=== PATIENT | female | born 1990 | race Caucasian/White ===

== ENCOUNTER 2021-04-12 18:02 | Emergency (ER) | payer OTHER ==
[~2021-04-12] VITALS: Ht 157.5 cm; Wt 81.7 kg
--- NOTE | ~2021-04-12 | EMS ---
[facility] [address] [place] [address] EMS Patient Care Report Name: DEX NGUYEN Room #: PRE ER M.R.#: [id number] Admission: Attend Phys: Discharge: Date of : 88 Report #: [id number] THIS REPORT FOR: //name// Report Transmitted: 04/12/2021 18:27 EMS Care Summary [place], [place]/[facility] Incident [id number] @ 04/12/2021 17:30 Incident Location [address] [place] [address] Patient DEX NGUYEN Female, 38 Years 1982-08-19 Patient Address [address] [place] [address] Patient History Novel Coronavirus (COVID-19), Chief Complaint covid Disposition Transported No Lights/[place] Dis[place] Reason Breathing Problem Transported To [facility] Narrative pt found walking outside with her partner. pts kids were on scene and stated pt speaks no albanian and is sri lankan speaking only. pt appeared a&ox4 gcs 15 and did not present in apparent distress. pts kids stated everyone in the house currently has covid and pt is not vaccinated and has been coughing and had a fever x1 week. pts kids were unable to provide ems with detailed hx. ems advised kids pt will be transported to [facility]. pt walked into ambulance. ems speaks very little sri lankan. ems was only able to obtain pts birthday. pt was transferred onto ems cot and was secured in a semi fowlers position without [facility] [address] [place] [address] EMS Patient Care Report Name: DEX NGUYEN Room #: PRE M.R.#: [id number] Admission: Attend Phys: Discharge: Date of : 88 Report #: [id number] incident. pt was administered 2lpm o2 via nc. pt had a persistent cough. pt was transported non emergent. transport was uneventful and pt rested on ems cot. pt care was transferred to appropriate staff and ems goes back in service. Initial Vitals @17:42P: 122,R: 20,BP: 110/70,Pain: 0/10,GCS: 15,SpO2: 88,Revised Trauma: 12, @17:52P: 120,R: 20,BP: 114/70,GCS: 15,SpO2: 92,Revised Trauma: 12, Assessments @17:37MENTAL:Place Oriented,Event Oriented,Time Oriented,Person Oriented,SKIN:No Abnormalities,HEENT:Head/Face: No Abnormalities,Eyes: No Abnormalities,Neck/Airway: No Abnormalities,LUNG SOUNDS:General: No Abnormalities,Left Upper: No Abnormalities,Right Upper: No Abnormalities,Left Lower: No Abnormalities,Right Lower: No Abnormalities,ABDOMEN:General: No Abnormalities,Left Upper: No Abnormalities,Right Upper: No Abnormalities,Left Lower: No Abnormalities,Right Lower: No Abnormalities,PELVIS//GI:No Abnormalities,EXTREMITIES:Left Arm: No Abnormalities,Right Arm: No Abnormalities,Left Leg: No Abnormalities,Right Leg: No Abnormalities,PULSE:NEURO:No Abnormalities,@17:51MENTAL:No Abnormalities,SKIN:No Abnormalities,HEENT:Head/Face: No Abnormalities,Eyes: No Abnormalities,Neck/Airway: No Abnormalities,LUNG SOUNDS:General: No Abnormalities,Left Upper: No Abnormalities,Right Upper: No Abnormalities,Left Lower: No Abnormalities,Right Lower: No Abnormalities,ABDOMEN:General: No Abnormalities,Left Upper: No Abnormalities,Right Upper: No Abnormalities,Left Lower: No Abnormalities,Right Lower: No Abnormalities,PELVIS//GI:No Abnormalities,EXTREMITIES:Left Arm: No Abnormalities,Right Arm: No Abnormalities,Left Leg: No Abnormalities,Right Leg: No Abnormalities,PULSE:NEURO:No Abnormalities, Impression Acute Respiratory Distress (Dyspnea) Procedures @17:37ALS AssessmentResponse: UnchangedSucceeded@17:42Oxygen FlowRate: 2 Device: Nasal Cannula (NC) Response: ImprovedSucceeded Timeline 17:27,Call Received 17:27,Dispatch Notified 17:30,Dispatched 17:32,En Route 17:36,On Scene 17:37,At Patient 17:37,ALS Assessment,Response: UnchangedSucceeded, 17:40,Depart Scene 17:42,Oxygen FlowRate: 2 Device: Nasal Cannula (NC) Response: Juani, [facility] [address] [place] [address] EMS Patient Care Report Name: DEX NGUYEN Room #: [facility] M.R.#: [id number] Admission: Attend Phys: Discharge: Date of : 88 Report #: [id number] 17:42,BP: 110/70 M,PULSE: 122,RR: 20 R,SPO2: 88 Ox,ETCO2: ,BG: ,PAIN: 0,GCS: 15, 17:52,BP: 114/70 M,PULSE: 120,RR: 20 R,SPO2: 92 Ox,ETCO2: ,BG: ,PAIN: ,GCS: 15, 17:56,At Destination 18:24,Call Closed Disclaimer v1.1 Copyright 2020 [employer] This EMS Care Summary contains data elements from the applicable legal record (which may be displayed differently). It is designed to provide pertinent information for the following purposes: continuity of care, clinical quality, and state data reporting. The complete legal record is available to ED staff and administrators of the receiving hospital in [facility] Patient Tracker. All data is provided "as is."
[2021-04-12 19:02] LABS: ABSOLUTE NEUTROPHILS 3.2 thou/uL (1.4-8.2); BASOPHILS 0.4 % (0.0-2.0); EOSINOPHILS 0.1 % (0.0-3.0); HEMOGLOBIN 14.2 gm/dL (12.0-15.0); LYMPHOCYTES 18.9 % (24.0-44.0); MCH 30.7 pg (26.0-34.0); MCHC 34.7 g/dL (28.0-37.0); MCV 88.5 fL (80.0-100.0); MONOCYTES 7.1 % (1.0-8.0); PLATELET COUNT 162 thou/uL (150-400); POLYS 73.5 % (36.0-66.0); RBC 4.63 mil/uL (4.20-5.00); RDW 12.8 % (10.5-14.5); WBC 4.3 thou/uL (4.0-11.0)
[2021-04-12] MEDS ORDERED: TESSALON PERLE100 M1 PO (19:03)
[2021-04-12 19:12] LABS: ANION GAP 7 mmol/L (7-16); BUN 9 mg/dL (7-18); CALCIUM 8.2 mg/dL (8.5-10.1); CHLORIDE 96 mmol/L (98-107); CO2 29 mmol/L (21-32); CREATININE 0.8 mg/dL (0.6-1.0); GLUCOSE 102 mg/dL (74-106); POTASSIUM 3.6 mmol/L (3.5-5.1); SODIUM 132 mmol/L (136-145)
[2021-04-12 19:22] LABS: ALBUMIN 3.5 g/dL (3.4-5.0); SGOT 88 U/L (15-37); SGPT 113 U/L (30-65); TOTAL BILIRUBIN 0.4 mg/dL (0.2-1.0); TOTAL PROTEIN 7.8 g/dL (6.4-8.2); TROPONIN-I <0.06 ng/mL (<0.06)
[2021-04-12 21:55] VITALS: BP 112/70
== END 2021-04-12 23:29 | disposition home or self-care (01) ==
LOC: ER 18:02
PROVIDERS: Physician Assistant
DX: U07.1 COVID-19 (principal); Z79.899 Other long term (current) drug therapy

== ENCOUNTER 2021-04-14 16:46 | Inpatient (IN) | payer OTHER ==
[~2021-04-14] VITALS: Ht 152.4 cm; Wt 91.6 kg
[~2021-04-14 16:46] MED LIST: TESSALON PERLE100 M1 PO
[2021-04-14 16:56] VITALS: BP 116/68
[2021-04-14 17:19] LABS: ABSOLUTE NEUTROPHILS 4.1 thou/uL (1.4-8.2); BASOPHILS 0.4 % (0.0-2.0); EOSINOPHILS 0.1 % (0.0-3.0); HEMOGLOBIN 12.8 gm/dL (12.0-15.0); LYMPHOCYTES 17.5 % (24.0-44.0); MCH 30.5 pg (26.0-34.0); MCHC 34.6 g/dL (28.0-37.0); MCV 88.1 fL (80.0-100.0); MONOCYTES 5.1 % (1.0-8.0); PLATELET COUNT 202 thou/uL (150-400); POLYS 76.9 % (36.0-66.0); RDW 12.4 % (10.5-14.5); WBC 5.3 thou/uL (4.0-11.0)
[2021-04-14 17:21] LABS: BE(vivo) 2.9 mmol/L (-2 to +3); HCO3 25.7 mmol/L (22.0-26.0); PCO2 33.9 mmHg (35.0-45.0); PO2 64.5 mmHg (80.0-100.0); pH 7.498 (7.360-7.450); sO2 94.4 % (92.0-98.0)
[2021-04-14 17:32] LABS: ANION GAP 10 mmol/L (7-16); BUN 8 mg/dL (7-18); CALCIUM 8.2 mg/dL (8.5-10.1); CHLORIDE 96 mmol/L (98-107); CO2 28 mmol/L (21-32); CREATININE 0.7 mg/dL (0.6-1.0); GLUCOSE 124 mg/dL (74-106); POTASSIUM 3.2 mmol/L (3.5-5.1); SODIUM 134 mmol/L (136-145)
[2021-04-14 17:42] LABS: ALBUMIN 3.1 g/dL (3.4-5.0); SGOT 63 U/L (15-37); SGPT 76 U/L (30-65); TOTAL BILIRUBIN 0.5 mg/dL (0.2-1.0); TOTAL PROTEIN 7.6 g/dL (6.4-8.2); TROPONIN-I <0.06 ng/mL (<0.06)
[2021-04-14 20:10] VITALS: BP 109/68
[2021-04-14 20:55] VITALS: BP 107/68
[2021-04-14 21:44] VITALS: BP 106/72
[2021-04-15 02:00] VITALS: BP 105/71
[2021-04-15 07:20] VITALS: BP 113/77
[2021-04-15 11:33] VITALS: BP 115/74
--- NOTE | 2021-04-15 12:22 | EKG ---
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
[2021-04-15 16:36] VITALS: BP 110/71
[2021-04-15 16:44] LABS: BE(vivo) 2.9 mmol/L (-2 to +3); HCO3 25.9 mmol/L (22.0-26.0); PCO2 34.6 mmHg (35.0-45.0); PO2 71.8 mmHg (80.0-100.0); pH 7.492 (7.360-7.450); sO2 95.7 % (92.0-98.0)
[2021-04-15 19:15] VITALS: BP 111/66
[2021-04-15 19:19] VITALS: BP 111/66
[2021-04-16 04:15] VITALS: BP 142/79
--- NOTE | 2021-04-16 05:03 | HC ---
[facility] [place] [address] CONSULTATION Name: DEX LYNCH Room #: 349-I ADM IN M.R.#: [id number] Admission: 04/14/21 Attend Phys: Franky Harding MD Discharge: Date of : 88 Report #: [id number] THIS REPORT FOR: cc: FAM - No family physician/PCP FAM - No family physician/PCP Yemi Anna MD ~ DATE OF SERVICE: 04/15/2021 INFECTIOUS DISEASE CONSULTATION DATE OF CONSULTATION: 04/15/2021 ATTENDING PHYSICIAN: Dr. Harding. REASON FOR EVALUATION: COVID-19 infection, complicated by pneumonitis and respiratory failure. HISTORY OF PRESENT ILLNESS: Chart reviewed, the patient was examined. This is a 30-year-old otherwise healthy Tamazight-speaking woman who was admitted through the Emergency Room, had presented there with complaints of progressive dyspnea with associated cough, although nonproductive, generalized myalgias, arthralgias, and some chills. She was noted to have fevers at the time of admission. Evaluation chest x-ray showed patchy bilateral pulmonary infiltrates. Coronavirus testing was positive. ABGs showed pH of 7.498, pCO2 of 33.9, pO2 of 64.5 on 6 liters. Due to her tenuous situation, she was admitted, she has been placed on supplemental oxygen requiring 15 liters per minute, FiO2 of 99%. She does complain of chest related pain and discomfort. I did speak with her father over the phone who does speak Anguillan. There is diminished appetite with poor p.o. intake. Denies significant gastrointestinal related complaints. ALLERGIES: None known. MEDICINES: Currently include azithromycin, ceftriaxone, dexamethasone, remdesivir, ivermectin, enoxaparin, famotidine, p.r.n. analgesics and antiemetics. PAST MEDICAL HISTORY: Otherwise, unremarkable. SOCIAL HISTORY: Smokes e-cigarettes. Occasional ethanol. No illicit drug use. FAMILY HISTORY: Noncontributory. REVIEW OF SYSTEMS: Otherwise, unremarkable. PHYSICAL EXAMINATION: [facility] [address] [place] [address] CONSULTATION Name: DEX LYNCH Room #: 349-I [facility] IN .R.#: [id number] Admission: 04/14/21 Attend Phys: Franky Harding MD Discharge: Date of : 88 Report #: [id number] GENERAL: She is alert, in moderate distress, has intermittent bouts of coughing, appears reasonably well nourished. VITAL SIGNS: Temperature 98, T-max was 102.9; pulse 71; respirations 20; blood pressure 113/77; saturations 98%. SKIN: Warm, dry, no rashes. HEENT: Normocephalic. Extraocular muscles intact. Nasal cannula in place with Optiflow. NECK: Supple. LUNGS: Scattered coarse breath sounds. HEART: Distant, appears to be regular. ABDOMEN: Somewhat distended, mildly firm, nontender. EXTREMITIES: No cyanosis. GENITOURINARY AND RECTAL: Deferred. LABORATORY DATA: ProBNP of 44. CTA chest PE protocol, no evidence of pulmonary embolus and there is some extensive severe bilateral pulmonary infiltrates. Procalcitonin 0.16. Ferritin 951. Lactic acid 1.2. Electrolytes: Sodium 134, potassium 3.2, chloride 96, bicarbonate 28, anion gap of 10, BUN and creatinine 8 and 0.7, AST of 63, ALT of 76, albumin of ____, total protein of 7.6. CBC: White count of 5.3, H and H of 12.8 and 37.0, platelet count of 202. ABGs: pH 7.498, pCO2 of 33.9, pO2 of 64.5 on 6 liters. ASSESSMENT AND PLAN: COVID-19 infection, complicated by pneumonitis and respiratory failure. I think she is clearly at risk for worsening status. She is requiring high doses of supplemental oxygen. She has been started on combination therapy. We will add vitamins, Actemra as well. Discussed with pharmacy. Continue supportive measures with supplemental oxygen. Monitor expectantly and risk for additional complications. <ELECTRONICALLY SIGNED> By: Yemi Anna MD 04/16/21 0503 [id number] 03 Yemi Anna MD /nt
[2021-04-16 05:13] LABS: HEMATOCRIT 34.8 % (37.0-47.0); HEMOGLOBIN 12.1 gm/dL (12.0-15.0); MCH 31.2 pg (26.0-34.0); MCHC 34.7 g/dL (28.0-37.0); MCV 89.9 fL (80.0-100.0); RBC 3.87 mil/uL (4.20-5.00); RDW 12.9 % (10.5-14.5); WBC 3.5 thou/uL (4.0-11.0)
[2021-04-16 05:38] LABS: ALBUMIN 2.8 g/dL (3.4-5.0); CALCIUM 8.5 mg/dL (8.5-10.1); CREATININE 0.5 mg/dL (0.6-1.0); MAGNESIUM 2.4 mg/dL (1.8-2.4); POTASSIUM 4.2 mmol/L (3.5-5.1); TOTAL BILIRUBIN 0.3 mg/dL (0.2-1.0); TOTAL PROTEIN 7.1 g/dL (6.4-8.2)
[2021-04-16 06:55] VITALS: BP 112/75
[2021-04-16 11:12] VITALS: BP 127/73
[2021-04-16 15:25] VITALS: BP 104/64
[2021-04-16 22:20] VITALS: BP 108/76
[2021-04-17 03:17] LABS: MCH 30.8 pg (26.0-34.0); MCHC 34.3 g/dL (28.0-37.0); MCV 89.8 fL (80.0-100.0); RBC 3.9 mil/uL (4.20-5.00); RDW 12.7 % (10.5-14.5); WBC 5.6 thou/uL (4.0-11.0)
[2021-04-17 04:11] LABS: ALBUMIN 2.8 g/dL (3.4-5.0); CALCIUM 8.4 mg/dL (8.5-10.1); CREATININE 0.6 mg/dL (0.6-1.0); MAGNESIUM 2.4 mg/dL (1.8-2.4); POTASSIUM 4.4 mmol/L (3.5-5.1); TOTAL BILIRUBIN 0.3 mg/dL (0.2-1.0); TOTAL PROTEIN 6.9 g/dL (6.4-8.2)
[2021-04-17 04:17] VITALS: BP 111/68
[2021-04-17 06:56] VITALS: BP 115/72
[2021-04-17 10:57] VITALS: BP 106/67
[2021-04-17 14:53] VITALS: BP 108/74
[2021-04-17 20:08] VITALS: BP 116/71
[2021-04-18 04:04] VITALS: BP 108/68
[2021-04-18 05:15] LABS: HEMATOCRIT 36.1 % (37.0-47.0); HEMOGLOBIN 12.1 gm/dL (12.0-15.0); MCH 30.4 pg (26.0-34.0); MCHC 33.5 g/dL (28.0-37.0); MCV 90.6 fL (80.0-100.0); RBC 3.98 mil/uL (4.20-5.00); RDW 13.1 % (10.5-14.5); WBC 6.3 thou/uL (4.0-11.0)
[2021-04-18 05:43] LABS: ALBUMIN 2.9 g/dL (3.4-5.0); CALCIUM 8.5 mg/dL (8.5-10.1); CREATININE 0.6 mg/dL (0.6-1.0); MAGNESIUM 2.6 mg/dL (1.8-2.4); POTASSIUM 4.6 mmol/L (3.5-5.1); TOTAL BILIRUBIN 0.4 mg/dL (0.2-1.0); TOTAL PROTEIN 6.8 g/dL (6.4-8.2)
[2021-04-18 07:01] VITALS: BP 105/71
[2021-04-18 10:58] VITALS: BP 103/63
[2021-04-18 14:58] VITALS: BP 99/51
[2021-04-18 19:35] VITALS: BP 113/75
[2021-04-19 02:25] LABS: HEMATOCRIT 37.2 % (37.0-47.0); HEMOGLOBIN 12.8 gm/dL (12.0-15.0); MCH 30.8 pg (26.0-34.0); MCHC 34.3 g/dL (28.0-37.0); MCV 89.9 fL (80.0-100.0); RBC 4.14 mil/uL (4.20-5.00); RDW 12.7 % (10.5-14.5); WBC 5.3 thou/uL (4.0-11.0)
[2021-04-19 03:39] VITALS: BP 114/64
[2021-04-19 03:54] LABS: ALBUMIN 3.1 g/dL (3.4-5.0); CALCIUM 8.4 mg/dL (8.5-10.1); CREATININE 0.7 mg/dL (0.6-1.0); MAGNESIUM 2.5 mg/dL (1.8-2.4); POTASSIUM 4.5 mmol/L (3.5-5.1); TOTAL BILIRUBIN 0.4 mg/dL (0.2-1.0); TOTAL PROTEIN 7.1 g/dL (6.4-8.2)
[2021-04-19 08:06] VITALS: BP 103/66
[2021-04-19 11:09] VITALS: BP 105/62
[2021-04-19 15:48] VITALS: BP 109/63
[2021-04-19 19:50] VITALS: BP 96/59
[2021-04-20 04:15] VITALS: BP 103/59
[2021-04-20 07:12] VITALS: BP 109/68
[2021-04-20 11:03] VITALS: BP 95/49
[2021-04-20 15:38] VITALS: BP 109/55
[2021-04-20 19:53] VITALS: BP 95/40
[2021-04-21 04:20] VITALS: BP 97/44
[2021-04-21 05:31] LABS: ABSOLUTE NEUTROPHILS 6.6 thou/uL (1.4-8.2); BASOPHILS 0.1 % (0.0-2.0); HEMATOCRIT 37.7 % (37.0-47.0); HEMOGLOBIN 12.9 gm/dL (12.0-15.0); LYMPHOCYTES 14.9 % (24.0-44.0); MCH 30.9 pg (26.0-34.0); MCHC 34.2 g/dL (28.0-37.0); MCV 90.4 fL (80.0-100.0); MONOCYTES 5.6 % (1.0-8.0); PLATELET COUNT 357 thou/uL (150-400); POLYS 79.4 % (36.0-66.0); RBC 4.17 mil/uL (4.20-5.00); WBC 8.3 thou/uL (4.0-11.0)
[2021-04-21 05:47] LABS: ALBUMIN 3.2 g/dL (3.4-5.0); CALCIUM 8.6 mg/dL (8.5-10.1); CREATININE 0.7 mg/dL (0.6-1.0); POTASSIUM 4.6 mmol/L (3.5-5.1); TOTAL BILIRUBIN 0.4 mg/dL (0.2-1.0)
[2021-04-21 07:50] VITALS: BP 106/62
[2021-04-21] MEDS ORDERED: PREDNISONE 20 M20 M1 PO (12:16)
[2021-04-21] MEDS ORDERED: VITAMIN D325 MC2 PO (12:16)
[2021-04-21] MEDS ORDERED: PROAIR HFA8.5 GM INH (12:16)
[2021-04-21] MEDS ORDERED: CEFDINIR300 MG PO (12:16)
[2021-04-21] MEDS ORDERED: ACEROLA C500 MG PO (12:16)
[2021-04-21] MEDS ORDERED: GUAIFENESIN DM S5 ML PO (12:16)
[2021-04-21 13:16] VITALS: BP 106/62
== END 2021-04-21 15:59 | disposition home or self-care (01) | DRG 871 ==
LOC: ER 16:46 → 3W 19:29 → EROBS 19:29 → 3W 20:54
PROVIDERS: Internal Medicine; Nurse Practitioner Family; Pediatrics; ADMIT Hospitalist; ATTEND Hospitalist
PROC: 5A0935A Assistance with Respiratory Ventilation, Less than 24 Consecutive Hours, High Flow/Velocity Cannula (ICD-10-PCS; principal; 2021-04-14)
PROC: 5A09357 Assistance with Respiratory Ventilation, Less than 24 Consecutive Hours, Continuous Positive Airway Pressure (ICD-10-PCS; 2021-04-15)
PROC: XW033E5 Introduction of Remdesivir Anti-infective into Peripheral Vein, Percutaneous Approach, New Technology Group 5 (ICD-10-PCS; 2021-04-15)
PROC: XW033H5 Introduction of Tocilizumab into Peripheral Vein, Percutaneous Approach, New Technology Group 5 (ICD-10-PCS; 2021-04-15)
PROC: 5A0935A Assistance with Respiratory Ventilation, Less than 24 Consecutive Hours, High Flow/Velocity Cannula (ICD-10-PCS; 2021-04-15)
PROC: 5A0935A Assistance with Respiratory Ventilation, Less than 24 Consecutive Hours, High Flow/Velocity Cannula (ICD-10-PCS; 2021-04-16)
PROC: 5A09357 Assistance with Respiratory Ventilation, Less than 24 Consecutive Hours, Continuous Positive Airway Pressure (ICD-10-PCS; 2021-04-16)
PROC: 5A09357 Assistance with Respiratory Ventilation, Less than 24 Consecutive Hours, Continuous Positive Airway Pressure (ICD-10-PCS; 2021-04-17)
PROC: 5A0935A Assistance with Respiratory Ventilation, Less than 24 Consecutive Hours, High Flow/Velocity Cannula (ICD-10-PCS; 2021-04-17)
PROC: 5A0935A Assistance with Respiratory Ventilation, Less than 24 Consecutive Hours, High Flow/Velocity Cannula (ICD-10-PCS; 2021-04-18)
PROC: 5A0935A Assistance with Respiratory Ventilation, Less than 24 Consecutive Hours, High Flow/Velocity Cannula (ICD-10-PCS; 2021-04-19)
PROC: 5A0935A Assistance with Respiratory Ventilation, Less than 24 Consecutive Hours, High Flow/Velocity Cannula (ICD-10-PCS; 2021-04-20)
PROC: 5A0935A Assistance with Respiratory Ventilation, Less than 24 Consecutive Hours, High Flow/Velocity Cannula (ICD-10-PCS; 2021-04-21)
DX: A41.89 Other specified sepsis (principal); U07.1 COVID-19; J12.82 Pneumonia due to coronavirus disease 2019; J80 Acute respiratory distress syndrome; R65.20 Severe sepsis without septic shock; E87.6 Hypokalemia; R74.01 Elevation of levels of liver transaminase levels; E66.01 Morbid (severe) obesity due to excess calories; D70.9 Neutropenia, unspecified; Z79.899 Other long term (current) drug therapy; Z68.43 Body mass index [BMI] 50.0-59.9, adult
CPT/HCPCS: 10779; 10879

== ENCOUNTER 2021-05-29 12:08 | Emergency (ER) | payer OTHER ==
[~2021-05-29] VITALS: Ht 165.1 cm; Wt 90.3 kg
[~2021-05-29 12:08] MED LIST changes: +ACEROLA C500 MG PO; +CEFDINIR300 MG PO; +GUAIFENESIN DM S5 ML PO; +PREDNISONE 20 M20 M1 PO; +PROAIR HFA8.5 GM INH; +VITAMIN D325 MC2 PO
[2021-05-29 12:31] VITALS: BP 129/82
[2021-05-29] MEDS ORDERED: TESSALON PERLE100 MG PO (13:47)
[2021-05-29] MEDS ORDERED: PREDNISONE 20 M20 MG PO (13:47)
[2021-05-29] MEDS ORDERED: ZPAK PO (13:47)
[2021-05-29] MEDS ORDERED: PROAIR HFA8.5 GM INH (13:47)
== END 2021-05-29 13:40 | disposition home or self-care (01) ==
LOC: ER 12:08
DX: J18.9 Pneumonia, unspecified organism (principal); R06.00 Dyspnea, unspecified; R05 Cough; Z98.890 Other specified postprocedural states; Z86.16 Personal history of COVID-19; Z79.51 Long term (current) use of inhaled steroids; Z79.899 Other long term (current) drug therapy

== ENCOUNTER 2021-06-21 09:54 | Emergency (ER) | payer OTHER ==
[~2021-06-21] VITALS: Ht 170.2 cm; Wt 91.6 kg
[~2021-06-21 09:54] MED LIST changes: +PREDNISONE 20 M20 MG PO; +TESSALON PERLE100 MG PO; +ZPAK PO
[2021-06-21 13:40] VITALS: BP 110/82
== END 2021-06-21 13:40 | disposition home or self-care (01) ==
LOC: ER 09:54
DX: M54.9 Dorsalgia, unspecified (principal); Z87.01 Personal history of pneumonia (recurrent); Z98.890 Other specified postprocedural states; Z86.16 Personal history of COVID-19; Z79.51 Long term (current) use of inhaled steroids; Z79.891 Long term (current) use of opiate analgesic; Z79.899 Other long term (current) drug therapy; Z79.1 Long term (current) use of non-steroidal anti-inflammatories (NSAID); Z87.891 Personal history of nicotine dependence